=== PATIENT | female | born 1980 | race Caucasian/White ===

== ENCOUNTER 2024-01-15 21:34 | Emergency (ER) | payer MEDICAID, OTHER ==
[~2024-01-15] VITALS: Ht 160 cm; Wt 53.5 kg
[2024-01-15 21:49] VITALS: BP 107/43; PULSE 68; RESP 16; TEMP 98; O2SAT 100
[2024-01-16] MEDS ORDERED: ONDA8TAB87 PO (00:08)
[2024-01-16 00:20] VITALS: BP 113/71; PULSE 66; RESP 16; TEMP 98; O2SAT 100
== END 2024-01-16 00:20 | disposition home or self-care (01) ==
LOC: MED 21:34
DX: S09.90XA Unspecified injury of head, initial encounter (principal); R11.0 Nausea; Z86.69 Personal history of other diseases of the nervous system and sense organs; Z88.6 Allergy status to analgesic agent; Z88.8 Allergy status to other drugs, medicaments and biological substances; Z98.890 Other specified postprocedural states; W22.8XXA Striking against or struck by other objects, initial encounter; Y93.89 Activity, other specified; Y92.89 Other specified places as the place of occurrence of the external cause; Y99.8 Other external cause status
CPT/HCPCS: 70450; 99284